=== PATIENT | female | born 1945 | race Caucasian/White ===

== ENCOUNTER 2023-06-18 20:53 | Emergency (ER) | payer OTHER ==
[~2023-06-18] VITALS: Ht 162.6 cm; Wt 99.8 kg
[2023-06-18 21:05] VITALS: BP_SYST 138; PULSE 86; RESP 20; TEMP 98; O2SAT 97
[2023-06-18 21:20] VITALS: BP_SYST 138; PULSE 86; RESP 20; TEMP 98; O2SAT 97
== END 2023-06-18 21:23 | disposition home or self-care (01) ==
LOC: SED 20:53
DX: S01.01XA Laceration without foreign body of scalp, initial encounter (principal); Z88.8 Allergy status to other drugs, medicaments and biological substances; Z91.018 Allergy to other foods; W01.198A Fall on same level from slipping, tripping and stumbling with subsequent striking against other object, initial encounter; Y93.89 Activity, other specified; Y92.89 Other specified places as the place of occurrence of the external cause; Y99.8 Other external cause status
CPT/HCPCS: 99282

== ENCOUNTER 2023-10-23 15:36 | Emergency (ER) | payer OTHER ==
[~2023-10-23] VITALS: Ht 162.6 cm; Wt 90.7 kg
[~2023-10-23 15:36] MED LIST: ALBMDI INH; CEFU250T85 PO; METH-776 PO
[2023-10-23 15:51] VITALS: BP_SYST 150; PULSE 64; RESP 22; TEMP 97.4; O2SAT 95
[2023-10-23] MEDS: IPRATROPIUM/ALBUTEROL SULFATE 3 ML AMPUL.NEB (DUONEB) INH ONE (16:19)
[2023-10-23] MEDS: guaiFENesin/DEXTROMETHORPHAN 10 ML UDC PO ONE (16:20)
[2023-10-23] MEDS: DEXAMETHASONE SOD PHOSPHATE 10 MG/ML VIAL IM ONE (16:21)
[2023-10-23 16:49] LABS: INFLUENZA TYPE A Negative (NEGATIVE)
[2023-10-23 16:52] LABS: INFLUENZA TYPE B POSITIVE (NEGATIVE)
[2023-10-23] MEDS ORDERED: ZIT250 PO (17:31)
[2023-10-23] MEDS ORDERED: GUAI5SYR PO (17:31)
[2023-10-23] MEDS ORDERED: OSEL75CA PO (17:31)
[2023-10-23] MEDS ORDERED: ALBMDI INH (17:31)
[2023-10-23] MEDS ORDERED: PRED20TA PO (17:31)
[2023-10-23] MEDS: AZITHROMYCIN 250 MG TABLET PO ONE (17:55)
[2023-10-23] MEDS: OSELTAMIVIR PHOSPHATE 75 MG CAPSULE PO ONE (17:55)
[2023-10-23 18:50] VITALS: BP_SYST 155; PULSE 57; RESP 20; TEMP 97.6; O2SAT 94
== END 2023-10-23 18:50 | disposition home or self-care (01) ==
LOC: SED 15:36
DX: J10.1 Influenza due to other identified influenza virus with other respiratory manifestations (principal); J45.901 Unspecified asthma with (acute) exacerbation; J18.9 Pneumonia, unspecified organism; R06.02 Shortness of breath; R05.9 Cough, unspecified; I10 Essential (primary) hypertension; Z88.1 Allergy status to other antibiotic agents; Z88.2 Allergy status to sulfonamides; Z91.048 Other nonmedicinal substance allergy status; Z91.013 Allergy to seafood; Z79.899 Other long term (current) drug therapy; Z20.822 Contact with and (suspected) exposure to COVID-19
CPT/HCPCS: 99284; 71045; 87426; 36415; 94640; 96372; 87804 ×2; J1100; Q0144; G9035